=== PATIENT | female | born 1975 | race Caucasian/White ===

== ENCOUNTER 2017-05-12 16:40 | Emergency (ER) | payer OTHER ==
[~2017-05-12] VITALS: Ht 165.1 cm; Wt 94.8 kg
[~2017-05-12 16:40] MED LIST: ADVAIR 500/501 DISK IH; INDOCIN50 MG PO; SERTRALINE HCL100 MG PO; VALIUM5 MG PO; VITAMIN B-6100 MG PO; XANAX0.5 MG PO; YASMIN,OCELL1 TABLET PO
[2017-05-12 20:36] LABS: BASOPHIL (%) 0.4 % (0-1); EOSINOPHIL COUNT 0.1 K/uL (0-0.3); HEMATOCRIT 39.7 % (36.0-46.0); HEMOGLOBIN 13.3 G/DL (11.9-15.5); IMMATURE GRANULOCYTE (%) 0.4 % (0.0-0.7); LYMPHOCYTE (%) 37.9 % (15-42); MCH 29.4 PG (29.0-34.0); MCHC 33.5 G/DL (30.0-36.0); MCV 87.8 FL (83-99); MONOCYTE (%) 6.9 % (3-12); MONOCYTE COUNT 0.6 K/uL (0-0.8); NEUTROPHIL (%) 53.4 % (45-76); NEUTROPHIL COUNT 4.2 K/uL (1.8-6.4); PLATELET COUNT 238 K/uL (156-360); RBC DIS.WIDTH-CV 12.7 % (11.8-14.6); RBC DIS.WIDTH-SD 40.8 % (39-53); RED BLOOD COUNT 4.52 M/uL (3.80-5.20); WHITE BLOOD COUNT 7.9 K/uL (4.1-10.2)
[2017-05-12 20:47] LABS: CHLORIDE 109 mEq/L (99-109); POTASSIUM 3.6 mEq/L (3.7-5.4); SODIUM 139 mEq/L (136-147)
[2017-05-12 20:49] LABS: GLUCOSE 105 mg/dL (70-99)
[2017-05-12 20:53] LABS: CREATININE 0.8 mg/dL (0.6-1.3); GFR ESTIMATE (CALCULATED) > 59 mL/min/
[2017-05-12 20:54] LABS: UREA NITROGEN (BUN) 11 mg/dL (9-23)
[2017-05-12 22:06] VITALS: BP 113/61
== END 2017-05-12 22:07 | disposition home or self-care (01) ==
LOC: EME 16:40
PROVIDERS: Physician Assistant
DX: M79.601 Pain in right arm (principal); R20.0 Anesthesia of skin; J45.909 Unspecified asthma, uncomplicated; F32.9 Major depressive disorder, single episode, unspecified; F41.9 Anxiety disorder, unspecified
CPT/HCPCS: 70450; 80048; 85025; 99281; 99284